=== PATIENT | male | born 1985 | race Caucasian/White ===

== ENCOUNTER 2017-02-22 20:49 | Emergency (ER) | payer OTHER ==
[2017-02-22 23:16] VITALS: BP 140/84
== END 2017-02-22 23:16 | disposition home or self-care (01) ==
LOC: ED 20:49
DX: S01.112A Laceration without foreign body of left eyelid and periocular area, initial encounter (principal); S09.90XA Unspecified injury of head, initial encounter; Y09 Assault by unspecified means; Y93.89 Activity, other specified; Y92.89 Other specified places as the place of occurrence of the external cause; Y99.8 Other external cause status
CPT/HCPCS: 90715; J2001